=== PATIENT | male | born 1950 | race Caucasian/White ===

== ENCOUNTER → 2024-03-12 | Outpatient (CLI) | payer MEDICARE, OTHER ==
--- NOTE | 2024-03-12 09:40 | US ---
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 Prox slightly limited due to overlying bowel gas IMPRESSION: No evidence for aortic aneurysm. [facility], , 03/12/2024 9:37 AM
--- NOTE | 2024-03-12 09:41 | US ---
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 Gallbladder: wnl Evidence for sonographic Gale's sign: No CBD: wnl Right Kidney: wnl IMPRESSION: 1. No ultrasound evidence for acute process. 2. No cholelithiasis identified. 3. Mild hepatic steatosis. [facility], , 03/12/2024 9:39 AM
== END | disposition home or self-care (01) ==
LOC: RADUSWWP 08:49
PROVIDERS: ATTEND Internal Medicine
DX: Z13.6 Encounter for screening for cardiovascular disorders (principal); K82.4 Cholesterolosis of gallbladder; K76.0 Fatty (change of) liver, not elsewhere classified
CPT/HCPCS: 76705; 76706